=== PATIENT | male | born 1930 | race Caucasian/White ===

== ENCOUNTER 2018-08-05 09:35 | Day surgery (SDC) | payer BC ==
[2018-08-05] MEDS ORDERED: BUPIVACAINE 0.25% (MPF) 30 ML INJ (10:48)
[2018-08-05] MEDS ORDERED: FENTAnyl 50 MCG/ML VIAL (12:21)
[2018-08-05] MEDS ORDERED: CEFAZOLIN 1 GM INJ (12:21)
[2018-08-05] MEDS ORDERED: ROCURONIUM 50 MG INJ (12:21)
[2018-08-05] MEDS ORDERED: PROPOFOL 20 ML (12:21)
[2018-08-05] MEDS ORDERED: ROPIVACAINE 0.2% 20 ML VIAL (12:21)
[2018-08-05] MEDS ORDERED: METOCLOPRAMIDE 10 MG INJ IV (12:30)
[2018-08-05] MEDS ORDERED: OXYCODONE/ACETAMINOPHEN (5/325) TAB PO ×2 (12:30)
[2018-08-05] MEDS ORDERED: LABETALOL HCL 20MG INJ IV (12:30)
[2018-08-05] MEDS ORDERED: hydrALAzine 20 MG INJ IV (12:30)
[2018-08-05] MEDS ORDERED: HYDROmorphONE 1 MG/5 ML IV SYRINGE IV ×3 (12:30)
[2018-08-05] MEDS ORDERED: EPHEDrine SULFATE 50 MG/5 ML SYG IV (12:30)
[2018-08-05] MEDS ORDERED: FENTAnyl 50 MCG/ML VIAL IV ×2 (12:30)
[2018-08-05] MEDS ORDERED: DIPHENHYDRAMINE 50 MG INJ IV (12:30)
[2018-08-05] MEDS ORDERED: ONDANSETRON 4 MG INJ (12:42)
[2018-08-05] MEDS ORDERED: DEXAMETHASONE 4 MG/ML 1 ML INJ (12:42)
[2018-08-05] MEDS ORDERED: METOCLOPRAMIDE 10 MG INJ (12:42)
[2018-08-05] MEDS ORDERED: NEOSTIGMINE 3 MG/3 ML SYRINGE (13:07)
[2018-08-05] MEDS ORDERED: GLYCOPYRROLATE 0.4 MG INJ (13:07)
[2018-08-05] MEDS: FENTAnyl 50 MCG/ML VIAL IV (13:33)
[2018-08-05] MEDS: ONDANSETRON 4 MG INJ IV (13:33)
[2018-08-05] MEDS: MEPERIDINE 25 MG INJ IV (13:34)
[2018-08-05] MEDS: HYDROCODONE/APAP (5/325) TAB PO (15:12)
== END 2018-08-05 15:35 | disposition home or self-care (01) ==
LOC: SDS 09:35
DX: K40.30 Unilateral inguinal hernia, with obstruction, without gangrene, not specified as recurrent (principal)
CPT/HCPCS: 49507; 93005